=== PATIENT | female | born 1970 | race American Indian/Alaskan Native ===

== ENCOUNTER 2017-02-02 11:10 | Outpatient (CLI) | payer BC ==
--- NOTE | 2017-02-02 11:46 | Mammography Report ---
BILATERAL MAMMOGRAM: FINDINGS: The breast tissue is heterogeneously dense, which could obscure detection of small masses (approximately 50%-75% glandular). No mass, distortion, suspicious calcification, or skin change is seen. No significant change when compared to prior exam in 2015. CAD was utilized. IMPRESSION: Negative mammogram. There is no mammographic evidence of malignancy. RECOMMENDATION: Follow-up per ACS guidelines. BI-RADS CATEGORY: 1 = Negative ACR BI-RADS MAMMOGRAPHIC CODES: 0 = Needs additional imaging evaluation; 1 = Negative; 2 = Benign; 3 = Probably benign; 4 = Suspicious; 5 = Malignant; 6 = Known biopsy-proven malignancy COMMENT: 1. Dense breast tissue, i.e., adenosis, fibrocystic changes, etc., may obscure an underlying neoplasm. 2. Approximately 10% of cancers are not detected with mammography. 3. A negative mammography report should not delay biopsy if a clinically suspicious mass is present. COMMENT: Patient follow-up letters are generated in [id number]
== END 2017-02-02 11:11 | disposition home or self-care (01) ==
LOC: SPVWC 11:10
PROVIDERS: ATTEND Nurse Practitioner
DX: Z12.31 Encounter for screening mammogram for malignant neoplasm of breast (principal)
CPT/HCPCS: 77067; G0202

== ENCOUNTER 2020-01-15 10:42 | Outpatient (CLI) | payer BC ==
--- NOTE | 2020-01-15 12:04 | Mammography Report ---
DIGITAL SCREENING MAMMOGRAM WITH CAD, 01/15/2020 INDICATION: Routine screening mammography. SCREENING MAMMOGRAM TECHNIQUE: Digital bilateral 2D mammography was obtained in the craniocaudal and mediolateral obliq ue projections. This examination was interpreted with the benefit of Computer-Aided Detection analysi s. COMPARISON: 02/02/2017 FINDINGS: Breast Density: The breasts are heterogeneously dense, which may obscure small masses. There is no evidence of dominant mass, suspicious calcifications or architectural distortion in the r ight breast. Interval bilateral breast reduction changes are seen. Benign-appearing calcifications ar e seen bilaterally though related to fat necrosis. A tight grouping of new microcalcifications are se en in the posterior depth of the central lateral left breast which are not clearly benign though I drew spect are early dystrophic calcifications similar to many others bilaterally. IMPRESSION: Questionably significant new calcifications of the left as above Follow up recommendation: Left magnification views Category 0: Incomplete. Needs additional imaging evaluation and/or prior mammograms for comparison. A "normal" or negative report should not discourage follow up or biopsy of a clinically significant f inding. A written summary of these findings will be mailed to the patient. The patient will be entered into a mammography reporting system which will generate a reminder letter for the patient's next appointmen t at the appropriate interval. The [employer] recommends yearly mammograms starting at age 40 and continuing as l zahra as a woman is in good health. Breast MRI is recommended for women with an approximate 20-25% or greater lifetime risk of breast cancer, including women with a strong family history of breast or ova bernie cancer or who have been treated for Hodgkin's disease. Signer Name: Francesco Davis MD Signed: 01/15/2020 11:59 AM Workstation Name: [id number]
== END 2020-01-15 10:43 | disposition home or self-care (01) ==
LOC: SPVWC 10:42
PROVIDERS: ATTEND Obstetrics & Gynecology Gynecology
DX: Z12.31 Encounter for screening mammogram for malignant neoplasm of breast (principal)
CPT/HCPCS: 77067

== ENCOUNTER 2020-02-09 08:45 | Outpatient (CLI) | payer BC ==
--- NOTE | 2020-02-09 09:29 | Mammography Report ---
DIGITAL DIAGNOSTIC MAMMOGRAM WITH CAD CONVENTIONAL, 02/09/2020 CLINICAL INFORMATION / INDICATION: Patient presents as a callback from screening mammogram for furthe r evaluation of left breast calcifications. ABNORMAL MAMMOGRAM TECHNIQUE: Digital left mammographic imaging was performed. Magnification views were obtained. This examination was interpreted with the benefit of Computer-aided Detection analysis. COMPARISON: Prior mammogram 01/15/2020 FINDINGS: Breast Density: The breasts are heterogeneously dense, which may obscure small masses. As seen on recent screening mammogram, there is a 2 mm group of coarse heterogeneous calcifications s een in the posterior 4:00 position of the left breast. Multiple additional benign-appearing calcifica tions related to fat necrosis are seen in the left breast, in this patient with history of breast red uction. IMPRESSION: 1. A small group of calcifications in the left breast is most likely related to developing fat necros is from prior breast reduction and is considered probably benign. Recommend left diagnostic mammogram in 6 months to ensure stability/appropriate evolution. Follow up recommendation: Short term follow up in 6 months. BI-RADS Category 3: Probably Benign. Followup in 6 months. A "normal" or negative report should not discourage follow up or biopsy of a clinically significant f inding. A written summary of these findings will be mailed to the patient. The patient will be entered into a mammography reporting system which will generate a reminder letter for the patient's next appointmen t at the appropriate interval. According to the [employer], yearly mammograms are recommended starting at age 40 and continuing as long as a woman is in good health. Breast MRI is recommended for women with an patricia roximately 20-25% or greater lifetime risk of breast cancer, including women with a strong family his tory of breast or ovarian cancer and women who have been treated for Hodgkin's disease. Signer Name: Louann De Paz MD Signed: 02/09/2020 9:24 AM Workstation Name: [email or web address]
== END 2020-02-09 08:46 | disposition home or self-care (01) ==
LOC: MAMMO 08:45
PROVIDERS: ATTEND Obstetrics & Gynecology Gynecology
DX: R92.8 Other abnormal and inconclusive findings on diagnostic imaging of breast (principal)

== ENCOUNTER 2020-07-21 14:58 | Outpatient (CLI) | payer BC ==
--- NOTE | 2020-07-21 15:55 | Mammography Report ---
DIGITAL DIAGNOSTIC MAMMOGRAM WITH CAD CONVENTIONAL, 07/21/2020 CLINICAL INFORMATION / INDICATION: Patient presents for six-month follow-up of probably benign calcif ications in the left breast. ABNORMAL MAMMO R92.8 TECHNIQUE: Digital left mammographic imaging was performed. Magnification views were obtained. This examination was interpreted with the benefit of Computer-aided Detection analysis. COMPARISON: Prior mammograms 01/15/2020 and 02/09/2020 FINDINGS: Breast Density: The breasts are heterogeneously dense, which may obscure small masses. A 1 to 2 mm group of coarse heterogeneous calcifications in the posterior 4:00 position of the left b reast is unchanged from prior examination. Multiple additional benign appearing calcifications relate d to fat necrosis are unchanged. IMPRESSION: 1. A small group of calcifications in the left breast is unchanged from prior examination and remain probably benign, likely related to fat necrosis from prior breast reduction. Recommend diagnostic jagruti mogram in 6 months to ensure ongoing stability, at which time patient will be due for bilateral exami nation. Follow up recommendation: Short term follow up in 6 months. BI-RADS Category 3: Probably Benign. Followup in 6 months. A "normal" or negative report should not discourage follow up or biopsy of a clinically significant f inding. A written summary of these findings will be mailed to the patient. The patient will be entered into a mammography reporting system which will generate a reminder letter for the patient's next appointmen t at the appropriate interval. According to the [employer], yearly mammograms are recommended starting at age 40 and continuing as long as a woman is in good health. Breast MRI is recommended for women with an patricia roximately 20-25% or greater lifetime risk of breast cancer, including women with a strong family his tory of breast or ovarian cancer and women who have been treated for Hodgkin's disease. Signer Name: Louann De Paz MD Signed: 07/21/2020 3:38 PM Workstation Name: [email or web address]
== END 2020-07-21 14:59 | disposition home or self-care (01) ==
LOC: SPVWC 14:58
PROVIDERS: ATTEND Obstetrics & Gynecology Gynecology
DX: R92.1 Mammographic calcification found on diagnostic imaging of breast (principal)